=== PATIENT | female | born 1975 | race Caucasian/White ===

== ENCOUNTER → 2022-04-06 | Outpatient (CLI) | payer BC, MEDICARE ==
--- NOTE | 2022-04-06 14:33 | MR ---
EXAMINATION TYPE: MR angio head wo con DATE OF EXAM: 04/06/2022 2:27 PM COMPARISON: NONE HISTORY: Tinnitus, cephalgia, swishing and pulse sound in right ear Three-dimensional [id number] intracranial MRA was performed with multiple intensity projection im ages submitted and source data reviewed at the workstation. The vertebrobasilar system as well as intracranial portions of the internal carotid arteries and thei r major tributaries are patent. There is dominant left vertebral artery with diminutive right vertebr al artery. Ectasia basilar artery. I do not see evidence for sizable aneurysm or vascular malformatio n. IMPRESSION: No significant stenosis or sizable aneurysmal dilatation.
== END | disposition home or self-care (01) ==
LOC: RADMRIMAIN 13:49
PROVIDERS: ATTEND Psychiatry & Neurology Neurology
DX: H93.19 Tinnitus, unspecified ear (principal)
CPT/HCPCS: 70544